=== PATIENT | female | born 1965 | race Caucasian/White ===

== ENCOUNTER 2017-01-18 13:45 | Outpatient (RCR) | payer BC ==
[~2017-01-18 13:45] MED LIST: ATIVAN2 MG; ATIVAN2 MG PO; EFFEXOR; IBUPROFEN800 MG PO; LAMICTAL 100MG100 MG; LEXAPRO 10MG10 MG; LEXAPRO20 MG; LORTAB 7.5/5001 TAB PO; NOLVADEX 1010 MG/TAB; Z-PAK
== END 2017-01-20 | disposition still patient (30) ==
LOC: MKS.ESL.PT
DX: Z47.1 Aftercare following joint replacement surgery (principal); Z96.642 Presence of left artificial hip joint

== ENCOUNTER 2017-01-22 16:00 | Outpatient (RCR) | payer BC | END 2017-01-28 10:32 | LOC: MKS.ESL.PT 16:00 | DX: Z47.89 Encounter for other orthopedic aftercare (principal); M25.852 Other specified joint disorders, left hip ==

== ENCOUNTER → 2017-04-19 | Outpatient (CLI) | payer BC | LOC: BHSO 09:43 | DX: F41.1 Generalized anxiety disorder (principal) ==

== ENCOUNTER → 2017-05-03 | Outpatient (CLI) | payer BC | LOC: MC.RAD 10:20 | DX: Z12.31 Encounter for screening mammogram for malignant neoplasm of breast (principal); N64.89 Other specified disorders of breast; Z98.890 Other specified postprocedural states ==

== ENCOUNTER → 2017-05-06 | Outpatient (CLI) | payer BC | LOC: MC.RAD 10:30 | DX: N64.89 Other specified disorders of breast (principal); Z98.890 Other specified postprocedural states ==

== ENCOUNTER 2018-04-23 20:45 | Emergency (ER) | payer BC ==
[~2018-04-23] VITALS: Ht 170.2 cm; Wt 68.2 kg
[2018-04-23 20:48] VITALS: BP 125/61; TEMP 97.6
[2018-04-23 22:50] VITALS: PULSE 78
== END 2018-04-23 22:50 | disposition home or self-care (01) ==
LOC: COL.ER 20:45
DX: S91.202A Unspecified open wound of left great toe with damage to nail, initial encounter (principal); Z23 Encounter for immunization; Z85.3 Personal history of malignant neoplasm of breast; W22.8XXA Striking against or struck by other objects, initial encounter; Y92.009 Unspecified place in unspecified non-institutional (private) residence as the place of occurrence of the external cause

== ENCOUNTER → 2018-07-08 | Outpatient (CLI) | payer BC | LOC: MC.RAD 06-13 14:20 | DX: Z12.31 Encounter for screening mammogram for malignant neoplasm of breast (principal); C50.411 Malignant neoplasm of upper-outer quadrant of right female breast; Z98.890 Other specified postprocedural states ==

== ENCOUNTER → 2019-08-04 | Outpatient (CLI) | payer BC | LOC: MC.RAD 09:58 | DX: C50.411 Malignant neoplasm of upper-outer quadrant of right female breast (principal); Z98.890 Other specified postprocedural states ==

== ENCOUNTER → 2020-08-05 | Outpatient (CLI) | payer BC | LOC: MC.RAD 09:30 | DX: Z12.31 Encounter for screening mammogram for malignant neoplasm of breast (principal); Z85.3 Personal history of malignant neoplasm of breast ==

== ENCOUNTER → 2021-08-07 | Outpatient (CLI) | payer BC | LOC: MC.RAD 09:30 | DX: Z12.31 Encounter for screening mammogram for malignant neoplasm of breast (principal); Z98.890 Other specified postprocedural states; Z98.82 Breast implant status; Z85.3 Personal history of malignant neoplasm of breast ==

== ENCOUNTER → 2022-12-22 | Outpatient (CLI) | payer BC | LOC: MC.RAD 13:28 | DX: Z12.31 Encounter for screening mammogram for malignant neoplasm of breast (principal) ==